=== PATIENT | female | born 1985 | race Hispanic/Latino ===

== ENCOUNTER 2022-01-04 10:29 | Emergency (ER) | payer OTHER ==
[2022-01-04] MEDS ORDERED: Ondansetron ODT 4 MG TAB ONE (11:16)
[2022-01-04] MEDS ORDERED: Lidocaine Viscous Sol 2% 15 ml UD Cup ONE (11:17)
[2022-01-04] MEDS ORDERED: Mag-Al Plus 1200 MG/1200 MG/120 MG/30 ML UDCUP ONE (11:17)
== END 2022-01-04 11:30 | disposition home or self-care (01) ==
LOC: CSHERS 10:29
DX: K27.9 Peptic ulcer, site unspecified, unspecified as acute or chronic, without hemorrhage or perforation (principal)
CPT/HCPCS: 99283; Q0162